=== PATIENT | female | born 1960 | race Caucasian/White ===

== ENCOUNTER 2017-02-06 11:25 | Emergency (ER) | payer MEDICARE, MEDICAID ==
[~2017-02-06] VITALS: Ht 157.5 cm; Wt 74.8 kg
[2017-02-06] MEDS ORDERED: BUSPIRONE HCL15 MG PO (11:44)
[2017-02-06] MEDS ORDERED: QUETIAPINE FUM100 M2 PO (11:45)
[2017-02-06] MEDS ORDERED: LOSARTAN POTAS100 MG PO (11:45)
[2017-02-06] MEDS ORDERED: PAROXETINE HCL40 MG PO (11:45)
[2017-02-06] MEDS ORDERED: METOPROLOL SUCC25 M2 PO (11:46)
[2017-02-06 12:39] LABS: HEMOGLOBIN 10.5 g/dL (12.2-16.2); LYMPH # 1.8 K/mm3 (0.7-4.5); LYMPH % 22.6 % (10-50.0)
--- NOTE | 2017-02-06 13:02 | RADIOLOGY REPORT PS360 ---
CT HEAD W/O CONTRAST HISTORY: Headache/pain/contusion or laceration following injury, prior craniotomy/brain surgery HEAD INJURY POST FALL ORDERING PHYSICIAN: Stan Frost MD PATIENT AGE: 57 years COMPARISON: 02/05/2017 TECHNIQUE: Axial images obtained without contrast. Brain and bone windows reviewed. FINDINGS: There has been a prior right-sided craniotomy with removal of the right parietal bone as well as the major portion of the temporal and frontal bone. Encephalomalacia changes are present from apparent prior right MCA infarction. No obvious intracranial hemorrhage. Periventricular ischemic gliotic changes are present on the left. No midline shift or mass effect is evident. There is some minimal parenchymal calcification in the right frontal lobe Mild mucosal thickening involves the ethmoid sinuses IMPRESSION: 1. No change with no acute finding 2. 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 3. Extensive right-sided craniotomy defect.
--- NOTE | 2017-02-06 13:08 | Emergency Room Report ---
History of Present Illness Time Seen by 1130 Presenting Problem in Triage Pt arrived:Ambulance Stretcher Presenting Problem:PT WAS RECENTLY SEEN IN THE ER PREVIOUS DATE, SENT TO AND SUBSEQUENTLY SENT BACK HOME A DISCHARGE. PT THEN EVIDENTLY HAD FALLEN, THEN WORKERS AT THE "HOME" CALLED EMS. EMS EVALUATION DETERMINED PATIENT TO NOT BE ABLE TO AMBULATED. Onset of symptoms date/time:/ or onset unknown for:MEDICAL HX UNKNOWN Treatment Prior to Arrival: STORAGE SOLUTIONS ARCHITECT Provided by: Sepsis Risk Assessment: Temp: 98.0 B/P: 96/57 MAP: 70 Pulse: 52 Resp: 18 Recent fever? N Clinical Suspician of Infection? N Mental Status: 1 - Regular (Normal Baseline) Sepsis Risk:Low Sepsis Risk Have you (or family members/close friends) recently traveled outside the [place]? N If Yes, where/when: Have you had exposure to infectious disease within the past month? TB? Other? Specify: Source patient, RN notes reviewed, RN/MD Exam Limitations no limitations Comment This is a 57-year-old female patient brought in by EMS from [facility] after tripping, and falling, injuring her left side of the head. Patient has that denies any loss of consciousness. She has a history of RIGHT temporal parietal craniotomy s/p subdural hematoma 3 years ago, while in [facility]. Patient was transferred to our emergency room yesterday after sustaining a fall, as well, and a suspicion for possible stroke. She was subsequently transferred to [facility] stroke team but the discharged later, the same day, after an acute CVA was ruled out. According to the discharge papers from the patient has advised that left-sided neurological deficit is old, related to her RIGHT temporal parietal craniotomy, 3 years ago. The EMS, and well as [facility] staff, believe the patient is unable to walk, which would be a change from her baseline. ALLERGIES Coded Allergies: No Known Allergies (02/05/17) Home Medications Reported Medications Buspirone Hcl 15 MG PO DAILY #90 Quetiapine Fumarate 100 MG PO DAILY #30 Losartan Potassium (Losartan 100MG) 100 MG PO DAILY #30 PAROXETINE HCL (Paroxetine Hcl) 40 MG PO DAILY #30 Metoprolol Succinate 25 MG PO DAILY #30 History Medical History General Hypertension? Yes Hepatitis? 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 N/A Social History Smoking Hx Smoker: Current Every Day Smoker Tobacco: Yes Type Cigarettes Packs/day < 1 Pack Alcohol Alcohol: No Review of Systems All Other Systems Reviewed and Negative Psychiatric/Neurological see HPI, headache Physical Exam Vital Signs Vital Signs Date Time Temp Pulse Resp B/P Pulse O2 O2 Flow FiO2 Ox Delivery Rate 02/06 1348 98.0 56 18 110/57 99 02/06 1309 56 18 110/57 99 02/06 1128 98.0 52 18 96/57 100 General Appearance normal appearance, WD/WN, no apparent distress Eye Exam - bilateral eye normal exam, bilateral eye PERRL, bilateral eye EOMI Respiratory Status Yes: trachea midline, chest symmetrical, non tender chest. No: respiratory distress. Lung Sounds bilateral: normal breath sounds, lungs clear. Cardiovascular normal exam, regular rate/rhythm, no peripheral edema, no gallop, no JVD, no murmur, no rub, normal peripheral pulses Peripheral Pulses Pulses normal Yes Gastrointestinal normal bowel sounds, normal exam, non tender, soft, no organomegaly Extremities non-tender, normal range of motion, normal inspection Neurologic alert, coiler operator II-XII nml as tested, normal exam, oriented x 3 Mental status normal mood/affect Skin intact, normal color, warm/dry, left side head tender to palpation, no erytrema, no soft tissue swelling right side of the head deformed, c/w craniotomy of the right temporo parietal area Medical Decision Making LABS/Meds/Orders Pt receiving controlled substance in ED? No Comment Case discussed with Care Management, who came and evalauted epatient for possible NH placemnet. They suggested the patient ot be seen by Physican Therapy while still here, in the ER. Physical Therapy here in the ER, assessing the patient. PT was able to get the patient out of bed and have her walk short distances, without help. Physical therapy discussrd case with case management and the both agree the patient can be discharged back to the assisted care living and that care management can follow-up with her while returned at [facility]. Due to her gait it was deemed as medically necessary (by Physical Therapy, as well as myself) that she receives a roller walker instead of a cane or o quad cane upon return to [facility]. Results/Orders Laboratory Tests 02/06/17 1220: Creatine Kinase 24 L, CK-MB (CK-2) Rel Index 2.1, CK and CKMB Interp < 0.5, Troponin I < 0.02 02/06/17 1220: Sodium 142, Potassium 3.6, Chloride 107, Carbon Dioxide 25, BUN 14, Creatinine 1.1 H, Estimated Creat Clear 67, Estimated GFR (MDRD) 51 L, Glucose 107 H, Calcium 8.9, Total Bilirubin 0.4, AST 52 H, ALT 48, Alkaline Phosphatase 99, Total Protein 8.2, Albumin 3.3 L, Globulin 4.9 H, Albumin/Globulin Ratio 0.7 L, WBC 7.9, RBC 3.66 L, Hgb 10.5 L, Hct 33.0 L, MCV 90.3, RDW 14.5, Plt Count 272, MPV 7.8, Gran % 69.5, Gran # 5.5, Lymphocytes % 22.6, Monocytes % 5.9, Eosinophils % 1.6, Basophils % 0.5, Lymphocytes # 1.8, Monocytes # 0.5, Eosinophils # 0.1, Basophils # 0.0, PUBS MCHC 31.8, MCH 28.7 Current Medication Orders Sig/Anne-Marie Start time Last Medication Dose Route Stop Time Status Admin Sodium Chloride 10 ML PRN PRN 02/06 1145 DCD IV 02/07 1131 Orders Procedure Date/time Status DIET-NOTHING BY MOUTH 02/06 D Active GCode Evaluation by Rehab, Per 02/06 1222 Active PHYS. THERAPY EVAL REQUEST 02/06 1156 Active PHYS. THERAPY EVAL REQUEST 02/06 1152 Active ELECTROCARDIOGRAM REQUEST 02/06 1132 Active CARDIAC ENZYMES 02/[address] HEAD REQ 02/06 1131 Complete IV SALINE LOCK 02/06 1131 Active CBC WITH AUTO DIFF 02/06 1131 Complete CHEM 12 PROFILE 02/06 1131 Complete 12 LEAD EKG-LEESA (INITIAL) 02/06 UNK Active CM/EKG CM/city council member Rhythm Normal Sinus Rhythm Rate 88 Ectopy No Comments no acute ischemic changes XRAY/CT/US XRAY/CT/US CT head CT interpretation by discussed w/radiologist CT Results abnormal Comment no ICH, see radiologist's report Departure Departure Time of Disposition 1303 Disposition DC Home or Self Care(routine) Clinical Impression Primary Impression: Fall Qualifiers: Encounter type: initial encounter Qualified Code: W19.XXXA - Unspecified fall, initial encounter Secondary Impressions: Head contusion Qualifiers: Encounter type: initial encounter Contusion of head detail: scalp Qualified Code: S00.03XA - Contusion of scalp, initial encounter Condition STABLE Referrals Flo MCDONALD,Willy Mejia (PCP): 2 Days-Call Office if not better Patient Instructions DI for Contusion Additional Instructions Physical therapy has seen and evalauted your while in this ER, and recommended that from now on you ustart using a roller walker (presscription attached). Discharge Counseling Counseled pt/family regarding diagnosis, test results, medications/RX, home care, follow up needs Comment Physical therapy has seen and evalauted your while in this ER, and recommended that from now on you ustart using a roller walker (presscription attached). ED Critical Care Critical Care No at [id number]
--- NOTE | 2017-02-06 13:08 | Emergency Room Report ---
History of Present Illness Time Seen by 1130 Presenting Problem in Triage Pt arrived:Ambulance Stretcher Presenting Problem:PT WAS RECENTLY SEEN IN THE ER PREVIOUS DATE, SENT TO AND SUBSEQUENTLY SENT BACK HOME A DISCHARGE. PT THEN EVIDENTLY HAD FALLEN, THEN WORKERS AT THE "HOME" CALLED EMS. EMS EVALUATION DETERMINED PATIENT TO NOT BE ABLE TO AMBULATED. Onset of symptoms date/time:/ or onset unknown for:MEDICAL HX UNKNOWN Treatment Prior to Arrival: OPERATIONS GENERAL AGENT Provided by: Sepsis Risk Assessment: Temp: 98.0 B/P: 96/57 MAP: 70 Pulse: 52 Resp: 18 Recent fever? N Clinical Suspician of Infection? N Mental Status: 1 - Regular (Normal Baseline) Sepsis Risk:Low Sepsis Risk Have you (or family members/close friends) recently traveled outside the [place]? N If Yes, where/when: Have you had exposure to infectious disease within the past month? TB? Other? Specify: Source patient, RN notes reviewed, RN/MD Exam Limitations no limitations Comment This is a 57-year-old female patient brought in by EMS from [facility] after tripping, and falling, injuring her left side of the head. Patient has that denies any loss of consciousness. She has a history of RIGHT temporal parietal craniotomy s/p subdural hematoma 3 years ago, while in [facility]. Patient was transferred to our emergency room yesterday after sustaining a fall, as well, and a suspicion for possible stroke. She was subsequently transferred to [facility] stroke team but the discharged later, the same day, after an acute CVA was ruled out. According to the discharge papers from the patient has advised that left-sided neurological deficit is old, related to her RIGHT temporal parietal craniotomy, 3 years ago. The EMS, and well as [facility] staff, believe the patient is unable to walk, which would be a change from her baseline. ALLERGIES Coded Allergies: No Known Allergies (02/05/17) Home Medications Reported Medications Buspirone Hcl 15 MG PO DAILY #90 Quetiapine Fumarate 100 MG PO DAILY #30 Losartan Potassium (Losartan 100MG) 100 MG PO DAILY #30 PAROXETINE HCL (Paroxetine Hcl) 40 MG PO DAILY #30 Metoprolol Succinate 25 MG PO DAILY #30 History Medical History General Hypertension? Yes Hepatitis? 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 N/A Social History Smoking Hx Smoker: Current Every Day Smoker Tobacco: Yes Type Cigarettes Packs/day < 1 Pack Alcohol Alcohol: No Review of Systems All Other Systems Reviewed and Negative Psychiatric/Neurological see HPI, headache Physical Exam Vital Signs Vital Signs Date Time Temp Pulse Resp B/P Pulse O2 O2 Flow FiO2 Ox Delivery Rate 02/06 1348 98.0 56 18 110/57 99 02/06 1309 56 18 110/57 99 02/06 1128 98.0 52 18 96/57 100 General Appearance normal appearance, WD/WN, no apparent distress Eye Exam - bilateral eye normal exam, bilateral eye PERRL, bilateral eye EOMI Respiratory Status Yes: trachea midline, chest symmetrical, non tender chest. No: respiratory distress. Lung Sounds bilateral: normal breath sounds, lungs clear. Cardiovascular normal exam, regular rate/rhythm, no peripheral edema, no gallop, no JVD, no murmur, no rub, normal peripheral pulses Peripheral Pulses Pulses normal Yes Gastrointestinal normal bowel sounds, normal exam, non tender, soft, no organomegaly Extremities non-tender, normal range of motion, normal inspection Neurologic alert, paediatric thoracic physician II-XII nml as tested, normal exam, oriented x 3 Mental status normal mood/affect Skin intact, normal color, warm/dry, left side head tender to palpation, no erytrema, no soft tissue swelling right side of the head deformed, c/w craniotomy of the right temporo parietal area Medical Decision Making LABS/Meds/Orders Pt receiving controlled substance in ED? No Comment Case discussed with Care Management, who came and evalauted epatient for possible NH placemnet. They suggested the patient ot be seen by Physican Therapy while still here, in the ER. Physical Therapy here in the ER, assessing the patient. PT was able to get the patient out of bed and have her walk short distances, without help. Physical therapy discussrd case with case management and the both agree the patient can be discharged back to the assisted care living and that care management can follow-up with her while returned at [facility]. Due to her gait it was deemed as medically necessary (by Physical Therapy, as well as myself) that she receives a roller walker instead of a cane or o quad cane upon return to [facility]. Results/Orders Laboratory Tests 02/06/17 1220: Creatine Kinase 24 L, CK-MB (CK-2) Rel Index 2.1, CK and CKMB Interp < 0.5, Troponin I < 0.02 02/06/17 1220: Sodium 142, Potassium 3.6, Chloride 107, Carbon Dioxide 25, BUN 14, Creatinine 1.1 H, Estimated Creat Clear 67, Estimated GFR (MDRD) 51 L, Glucose 107 H, Calcium 8.9, Total Bilirubin 0.4, AST 52 H, ALT 48, Alkaline Phosphatase 99, Total Protein 8.2, Albumin 3.3 L, Globulin 4.9 H, Albumin/Globulin Ratio 0.7 L, WBC 7.9, RBC 3.66 L, Hgb 10.5 L, Hct 33.0 L, MCV 90.3, RDW 14.5, Plt Count 272, MPV 7.8, Gran % 69.5, Gran # 5.5, Lymphocytes % 22.6, Monocytes % 5.9, Eosinophils % 1.6, Basophils % 0.5, Lymphocytes # 1.8, Monocytes # 0.5, Eosinophils # 0.1, Basophils # 0.0, PUBS MCHC 31.8, MCH 28.7 Current Medication Orders Sig/Anne-Marie Start time Last Medication Dose Route Stop Time Status Admin Sodium Chloride 10 ML PRN PRN 02/06 1145 DCD IV 02/07 1131 Orders Procedure Date/time Status DIET-NOTHING BY MOUTH 02/06 D Active GCode Evaluation by Rehab, Per 02/06 1222 Active PHYS. THERAPY EVAL REQUEST 02/06 1156 Active PHYS. THERAPY EVAL REQUEST 02/06 1152 Active ELECTROCARDIOGRAM REQUEST 02/06 1132 Active CARDIAC ENZYMES 02/[address] HEAD REQ 02/06 1131 Complete IV SALINE LOCK 02/06 1131 Active CBC WITH AUTO DIFF 02/06 1131 Complete CHEM 12 PROFILE 02/06 1131 Complete 12 LEAD EKG-LEESA (INITIAL) 02/06 UNK Active CM/EKG CM/retort firer Rhythm Normal Sinus Rhythm Rate 88 Ectopy No Comments no acute ischemic changes XRAY/CT/US XRAY/CT/US CT head CT interpretation by discussed w/radiologist CT Results abnormal Comment no ICH, see radiologist's report Departure Departure Time of Disposition 1303 Disposition DC Home or Self Care(routine) Clinical Impression Primary Impression: Fall Qualifiers: Encounter type: initial encounter Qualified Code: W19.XXXA - Unspecified fall, initial encounter Secondary Impressions: Head contusion Qualifiers: Encounter type: initial encounter Contusion of head detail: scalp Qualified Code: S00.03XA - Contusion of scalp, initial encounter Condition STABLE Referrals Flo MCDONALD,Willy Mejia (PCP): 2 Days-Call Office if not better Patient Instructions DI for Contusion Additional Instructions Physical therapy has seen and evalauted your while in this ER, and recommended that from now on you ustart using a roller walker (presscription attached). Discharge Counseling Counseled pt/family regarding diagnosis, test results, medications/RX, home care, follow up needs Comment Physical therapy has seen and evalauted your while in this ER, and recommended that from now on you ustart using a roller walker (presscription attached). ED Critical Care Critical Care No at [id number]
[2017-02-06 13:48] VITALS: BP 110/57
== END 2017-02-06 13:49 | disposition home or self-care (01) ==
LOC: ER 11:25
PROVIDERS: Emergency Medicine
DX: S00.03XA Contusion of scalp, initial encounter (principal); W19.XXXA Unspecified fall, initial encounter; I10 Essential (primary) hypertension; Z79.899 Other long term (current) drug therapy; Z72.0 Tobacco use

== ENCOUNTER 2017-04-19 10:15 | Emergency (ER) | payer MEDICARE, MEDICAID ==
[~2017-04-19] VITALS: Ht 157.5 cm; Wt 68.0 kg
[~2017-04-19 10:15] MED LIST: BUSPIRONE HCL15 MG PO; LOSARTAN POTAS100 MG PO; METOPROLOL SUCC25 M2 PO; PAROXETINE HCL40 MG PO; QUETIAPINE FUM100 M2 PO
--- OUTSIDE RECORDS SUMMARY | 2017-04-19 10:48 | External Medical Summary Rpt | Continuity of Care Document ---
Author Author Organization Address Unknown Phone Unavailable Care Team Providers Care Behavioral Health Care Manager Name Role Phone , Unavailable Unavailable EMS Current Medications Section EMS Allergies and Adverse Reactions EMS Past Medical History Medications Administered Section EMS Procedures Performed EMS Vital Signs EMS Patient Care Report Narrative Called to [facility] for a transfer. U/A pt is a 57 y/o female that was found sitting in bed 2 of the ED with holloway catheter in place and IV in the left hand. Pt was brought into the ED by EC1. Pt was reported to have fallen at approximately 12 noon at [place]. When this happened, the patient was immediately slurring her words and displayed stroke like symptoms. Pt initial NIH scale at the ED was 5. Pt is being sent to for neurological care not available locally. Pt was moved to stretcher by crew and secured. Pt then moved into ambulance and secured. Pt was placed on onion topper. Exam as listed. Pt was transported to non urgently due to being outside of stroke window. No changes in route to , care turned over to staff.
--- OUTSIDE RECORDS SUMMARY | 2017-04-19 10:48 | External Medical Summary Rpt | Continuity of Care Document ---
Author Author Organization Address Unknown Phone Unavailable Care Team Providers Care Hammerer Tab Name Role Phone , Unavailable Unavailable EMS Current Medications Section EMS Allergies and Adverse Reactions EMS Past Medical History Medications Administered Section EMS Procedures Performed EMS Vital Signs EMS Patient Care Report Narrative H911 IMMEDIATE RESPONSE TO PARK SIDE FOR A FEMALE THAT HAS FALLEN AND IS NOT ACTING RIGHT. UPON ARRIVAL TO PT SHE WAS SITTING UP ON A BENCH OUTSIDE WITH A STAFF MEMEBR ON HER LT SIDE HOLDING HER UP. PT WAS 4-5-6, SKIN W/D, LION, L/S C=. PT HAD LT SIDED FACIAL DROOP, SLURRED SPEECH LT ARM WEAKNESS. PLACED PT ONTO COT AND THEN INTO THE AMBULANCE. OBTAINED V/S, VAN OWNER OPERATOR - NSR, BGS - 128, 20G LOCK LT HAND, BLOOD DRAW, CALLED STROKE ALERT TO [facility] ER AND MONITORED PT EN ROUTE TO [facility] ER. TRANSPORT WITH OUT INCIDENT. NO CHANGE IN STATUS. REPORT AND CARE GIVEN TO SALES PROGRAM MANAGER. Padmini ROGERS CCP.
--- OUTSIDE RECORDS SUMMARY | 2017-04-19 10:48 | External Medical Summary Rpt | Continuity of Care Document ---
Author Author Organization Address Unknown Phone Unavailable Care Team Providers Care Director Of Nurses Registry Name Role Phone , Unavailable Unavailable EMS Current Medications Section EMS Allergies and Adverse Reactions EMS Past Medical History Medications Administered Section EMS Procedures Performed EMS Vital Signs EMS Patient Care Report Narrative Called to [facility] for a transfer. U/A pt is a 57 y/o female that was found sitting in bed 2 of the ED with holloway catheter in place and IV in the left hand. Pt was brought into the ED by EC1. Pt was reported to have fallen at approximately 12 noon at [place]. When this happened, the patient was immediately slurring her words and displayed stroke like symptoms. Pt initial NIH scale at the ED was 5. Pt is being sent to for neurological care not available locally. Pt was moved to stretcher by crew and secured. Pt then moved into ambulance and secured. Pt was placed on cardiac cath lab technologist. Exam as listed. Pt was transported to non urgently due to being outside of stroke window. No changes in route to , care turned over to staff.
--- OUTSIDE RECORDS SUMMARY | 2017-04-19 10:48 | External Medical Summary Rpt | Continuity of Care Document ---
Author Author Organization Address Unknown Phone Unavailable Care Team Providers Care Fuel Cell Designer Name Role Phone , Unavailable Unavailable EMS Current Medications Section EMS Allergies and Adverse Reactions EMS Past Medical History Medications Administered Section EMS Procedures Performed EMS Vital Signs EMS Patient Care Report Narrative Crew 231 dispatched to for transport of 57 year old female pt going to [facility] in [facility]. Crew received report from pt's nurse on scene. Pt required transport by ambulance due to severe weakness/could not sit upright, Hx of falls. Crew found pt supine in hospital bed on room air, alert and oriented. Crew moved pt from hospital bed to stretcher by draw sheet then secured them with all belts and rails. Crew loaded pt into ambulance for transport. Pt vitals were monitored and noted, pt remained stable. Crew unloaded pt at destination then took them into facility. Crew moved pt from stretcher to bed by draw sheet. A report was given to receiving nurse then pt care was turned over to them.
--- OUTSIDE RECORDS SUMMARY | 2017-04-19 10:48 | External Medical Summary Rpt | Continuity of Care Document ---
Author Author Organization Address Unknown Phone Unavailable Care Team Providers Care Call Center Dispatcher Name Role Phone , Unavailable Unavailable EMS [...] AND THEN INTO THE AMBULANCE. OBTAINED V/S, CLOCKSMITH - NSR, BGS - 128, 20G LOCK LT HAND, BLOOD DRAW, CALLED STROKE ALERT TO [facility] ER AND MONITORED PT EN ROUTE TO [facility] ER. TRANSPORT WITH OUT INCIDENT. NO CHANGE IN STATUS. REPORT AND CARE GIVEN TO CUTTER HELPER. Padmini ROGERS CCP.
--- OUTSIDE RECORDS SUMMARY | 2017-04-19 10:48 | External Medical Summary Rpt | Continuity of Care Document ---
Author Author Organization Address Unknown Phone Unavailable Care Team Providers Care Meat Stuffer Name Role Phone , Unavailable Unavailable EMS Current Medications Section EMS Allergies and Adverse Reactions EMS Past Medical History Medications Administered Section EMS Procedures Performed EMS Vital Signs EMS Patient Care Report Narrative Crew 231 dispatched to for transport of 57 year old female pt going to [facility] in [facility]. Crew received report from pt's nurse on [...]
--- OUTSIDE RECORDS SUMMARY | 2017-04-19 10:49 | External Medical Summary Rpt | CCD ---
Author Author Conduent Organization Conduent Address Unknown Phone Unavailable Purpose Continuity of Care Document - through 2016
--- OUTSIDE RECORDS SUMMARY | 2017-04-19 10:49 | External Medical Summary Rpt | CCD ---
Author Author , CASSANDRA Organization CASSANDRA Address Unknown Phone [email or web address] Purpose Continuity of Care Document - 02-05-2017 through 2016 Problems Code Diagnosis DOS Provider Status F17.200 Nicotine 02-13-2017 dependence, unspecified , uncomplicat ed G81.94 Hemiplegia, 02-13-2017 unspecified affecting left nondominant side G93.89 Other 02-13-2017 specified disorders of brain I10 Essential 02-13-2017 (primary) hypertensio n R47.1 Dysarthria 02-13-2017 and anarthria R53.1 Weakness 02-13-2017 R91.8 Other 02-13-2017 nonspecific abnormal finding of lung field W19.XXXA Unspecified 02-13-2017 fall, initial encounter Z72.0 Tobacco use 02-13-2017 Z87.820 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 C34.12 Malignant neoplasm of upper lobe, 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 of unspecified site F31.31 Bipolar disorder, current episode depressed, mild F32.89 Other specified depressive episodes F41.9 Anxiety disorder, unspecified 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 G89.29 Other chronic pain I63.9 CEREBRAL INFARCTION, UNSPECIFIED J95.811 Postprocedu ral pneumothora x J96.01 Acute respiratory failure with hypoxia M25.532 Pain in left wrist M54.5 Low back pain R09.1 Pleurisy R11.0 Nausea R25.1 Tremor, unspecified R60.9 Edema, unspecified S00.93XA CONTUSION OF UNSPECIFIED PART OF HEAD, INITIAL ENCOUNTER S32.030A Wedge compression fracture of third lumbar vertebra, initial encounter for closed fracture S49.92XA Unspecified injury of left shoulder and upper arm, initial encounter S52.502A Unspecified fracture of the lower end of left radius, initial encounter for closed fracture S62.102B Fracture of unspecified carpal bone, left wrist, initial encounter for open fracture S93.402A Sprain of unspecified ligament of left ankle, initial encounter Z01.812 Encounter for preprocedur al laboratory examination Z01.818 Encounter for other preprocedur al examination Z76.5 Malingerer (conscious simulation) Z79.899 Other mcfp (current) drug therapy
--- OUTSIDE RECORDS SUMMARY | 2017-04-19 10:49 | External Medical Summary Rpt | CCD ---
Author Author , CASSANDRA Organization CASSANDRA Address Unknown Phone [email or web address] Purpose Continuity of Care Document - 02-05-2017 [...] examination Z76.5 Malingerer (conscious simulation) Z79.899 Other long-term (current) drug therapy
--- OUTSIDE RECORDS SUMMARY | 2017-04-19 10:49 | External Medical Summary Rpt ---
Author Author ALBINOSILVANA [employer], CASSANDRA [employer] Organization [employer] Address Unknown Phone Unavailable Results Comprehensive metabolic 2000 panel in Serum or Plasma Observa Value Referen Units Interpr Notes Date tion ce etation Range Albumin/G 1.1 - 1.8 No Low No Sep 6 lobulin informati informati 2017 [Mass on in on in 12:20 PM ratio] in source source Serum or data data Plasma Albumin 3.4 - 5.0 gm/dL Low No Sep 6 [Mass/vol informati 2017 ume] in on in 12:20 PM Serum or source Plasma data Alkaline 46 - 116 U/L Normal No Sep 6 phosphata informati 2017 se on in 12:20 PM [Enzymati source c data activity/ volume] in Serum or Plasma Bilirubin 0.2 - 1.0 mg/dL Normal No Sep 6 .total informati 2017 [Mass/vol on in 12:20 PM ume] in source Serum or data Plasma Urea 7 - 18 mg/dL Normal No Sep 6 nitrogen informati 2017 [Mass/vol on in 12:20 PM ume] in source Serum or data Plasma Calcium 8.5 - mg/dL Normal No Sep 6 [Mass/vol 10.1 informati 2017 ume] in on in 12:20 PM Serum or source Plasma data Chloride 98 - 107 mmoL/L Normal No Sep 6 [Moles/vo informati 2017 lume] in on in 12:20 PM Serum or source Plasma data Carbon 21.0 - mmoL/L Normal No Sep 6 dioxide, 32.0 informati 2017 total on in 12:20 PM [Moles/vo source lume] in data Serum or Plasma Creatinin 0.55 - mg/dL High No Sep 6 e 1.02 informati 2017 [Mass/vol on in 12:20 PM ume] in source Serum or data Plasma Creatinin 50 - 200 ML/MIN Normal No Sep 6 e renal informati 2017 clearance on in 12:20 PM source predicted data by Cockcroft -Gault formula Estimated 59- ML/MIN Low REFERENCE Sep 6 RANGE: 2017 glomerula >60 12:20 PM r ML/MIN/1. filtratio 73 SQUARE n rate METERSIf (GF this patient is -A merican, then multiply theresult by 1.210. Globulin 1.3 - 3.2 gm/dL High No Sep 6 [Mass/vol informati 2017 ume] in on in 12:20 PM Serum source data Glucose 74 - 106 mg/dL High No Sep 6 [Mass/vol informati 2017 ume] in on in 12:20 PM Serum or source Plasma data Potassium 3.5 - 5.1 mmoL/L Normal No Sep 6 inform 2017 [Moles/vo on in 12:20 PM lume] in source Serum or data Plasma Sodium 136 - 145 mmoL/L Normal No Sep 6 [Moles/vo informati 2017 lume] in on in 12:20 PM Serum or source Plasma data Aspartate 15 - 37 U/L High No Sep 6 inform 2017 aminotran on in 12:20 PM sferase source [Enzymati data c activity/ volume] in Serum or Plasma Alanine 12 - 78 U/L Normal No Sep 6 aminotran inform 2017 sferase on in 12:20 PM [Enzymati source c data activity/ volume] in Serum or Plasma Protein 6.4 - 8.2 gm/dL Normal No Sep 6 [Mass/vol informati 2017 ume] in on in 12:20 PM Serum or source Plasma data CBC W Auto Differential panel in Blood Observa Value Referen Units Interpr Notes Date tion ce etation Range Basophils 0 - 0.2 K/MM3 Normal No Sep 6 2016 [#/volume on in 12:20 PM ] in source Blood by data Automated count Basophils 0.1 - 2.0 % Normal No Sep 6 /100 inform 2017 leukocyte on in 12:20 PM s in source Blood by data Automated count Eosinophi 0.0 - 0.4 K/mm3 Normal No Sep 6 ls informati 2016 [#/volume on in 12:20 PM ] in source Blood by data Automated count Eosinophi 0.1 - % Normal No Sep 6 ls/100 12.0 informati 2017 leukocyte on in 12:20 PM s in source Blood by data Automated count Granulocy 1.8 - 7.8 K/mm3 Normal No Sep 6 theresa 2016 [#/volume on in 12:20 PM ] in source Blood by data Automated count Granulocy 37.0 - % Normal No Sep 6 theresa/100 80.0 informati 2016 leukocyte on in 12:20 PM s in source Blood by data Automated count Hematocri 37.0 - % Low No Sep 6 t [Volume 47.0 informati 2017 on in 12:20 PM Fraction] source of Blood data Hemoglobi 12.2 - g/dL Low No Sep 6 n 16.2 informati 2017 [Mass/vol on in 12:20 PM ume] in source Blood data Lymphocyt 0.7 - 4.5 K/mm3 Normal No Sep 6 es inform 2017 [#/volume on in 12:20 PM ] in source Unspecifi data ed specimen by Automated count Lymphocyt 10 - 50.0 % Normal No Sep 6 es inform 2017 [#/volume on in 12:20 PM ] in source Unspecifi data ed specimen by Automated count Erythrocy 27 - 31.2 pg Normal No Sep 6 te mean inform 2017 corpuscul on in 12:20 PM ar source hemoglobi data n [Entitic mass] Erythrocy 31.8 - g/dl Normal No Sep 6 te mean 35.4 informati 2017 corpuscul on in 12:20 PM ar source hemoglobi data n concentra tion [Mass/vol ume] by Automated count Erythrocy 82.2 - fl Normal No Sep 6 te mean 97.8 informati 2017 corpuscul on in 12:20 PM ar volume source [Entitic data volume] by Automated count Monocytes 0.1 - 1.0 K/mm3 Normal No Sep 6 inform 2017 [#/volume on in 12:20 PM ] in source Blood by data Automated count Monocytes 1.7 - 9.3 % Normal No Sep 6 /100 informati 2017 leukocyte on in 12:20 PM s in source Blood by data Automated count Platelet 7.4 - fl Normal No Sep 6 mean 10.4 informati 2017 volume on in 12:20 PM [Entitic source volume] data in Blood by Automated count Platelets 142 - 424 K/mm3 Normal No Sep 6 inform2016 [#/volume on in 12:20 PM ] in source Blood data Erythrocy 4.2 - 5.4 M/mm3 Low No Sep 6 theresa informati 2016 [#/volume on in 12:20 PM ] in source Amniotic data fluid Erythrocy 11.5 - % Normal No Sep 6 te 17.5 informati 2016 distribut on in 12:20 PM ion width source [Entitic data volume] by Automated count Leukocyte 4.8 - K/MM3 Normal No Sep 6 s 10.8 2016 [#/volume on in 12:20 PM ] in source Blood data CBC W Auto Differential panel in Blood Observa Value Referen Units Interpr Notes Date tion ce etation Range Basophils 0 - 0.2 K/MM3 Normal No Sep 5 2016 [#/volume on in 11:45 AM ] in source Blood by data Automated count Basophils 0.1 - 2.0 % Normal No Sep 5 /100 inform2016 leukocyte on in 11:45 AM s in source Blood by data Automated count Eosinophi 0.0 - 0.4 K/mm3 Normal No Sep 5 ls 2016 [#/volume on in 11:45 AM ] in source Blood by data Automated count Eosinophi 0.1 - % Normal No Sep 5 ls/100 12.0 2016 leukocyte on in 11:45 AM s in source Blood by data Automated count Granulocy 1.8 - 7.8 K/mm3 Normal No Sep 5 theresa 2016 [#/volume on in 11:45 AM ] in source Blood by data Automated count Granulocy 37.0 - % Normal No Sep 5 theresa/100 80.0 2016 leukocyte on in 11:45 AM s in source Blood by data Automated count Hematocri 37.0 - % Low No Sep 5 t [Volume 47.0 inform2016 on in 11:45 AM Fraction] source of Blood data Hemoglobi 12.2 - g/dL Low No Sep 5 n 16.2 2016 [Mass/vol on in 11:45 AM ume] in source Blood data Lymphocyt 0.7 - 4.5 K/mm3 Normal No Sep 5 es 2016 [#/volume on in 11:45 AM ] in source Unspecifi data ed specimen by Automated count Lymphocyt 10 - 50.0 % Normal No Sep 5 es 2016 [#/volume on in 11:45 AM ] in source Unspecifi data ed specimen by Automated count Erythrocy 27 - 31.2 pg Normal No Sep 5 te mean 2016 corpuscul on in 11:45 AM ar source hemoglobi data n [Entitic mass] Erythrocy 31.8 - g/dl Normal No Sep 5 te mean 35.4 inform2016 corpuscul on in 11:45 AM ar source hemoglobi data n concentra tion [Mass/vol ume] by Automated count Erythrocy 82.2 - fl Normal No Sep 5 te mean 97.8 2016 corpuscul on in 11:45 AM ar volume source [Entitic data volume] by Automated count Monocytes 0.1 - 1.0 K/mm3 Normal No Sep 5 2016 [#/volume on in 11:45 AM ] in source Blood by data Automated count Monocytes 1.7 - 9.3 % Normal No Sep 5 /100 2016 leukocyte on in 11:45 AM s in source Blood by data Automated count Platelets 142 - 424 K/mm3 Normal No Sep 5 2016 [#/volume on in 11:45 AM ] in source Blood data Erythrocy 4.2 - 5.4 M/mm3 Low No Sep 5 theresa 2016 [#/volume on in 11:45 AM ] in source Amniotic data fluid Erythrocy 11.5 - % Normal No Sep 5 te 17.5 2016 distribut on in 11:45 AM ion width source [Entitic data volume] by Automated count Leukocyte 4.8 - K/MM3 Normal No Sep 5 s 10.8 2016 [#/volume on in 11:45 AM ] in source Blood data INR in Blood by Coagulation assay Observa Value Referen Units Interpr Notes Date tion ce etation Range IS PATIENT ON ANTICOAGULANTS? N PTT RESULTS MUST BE CALLED IF PT ON HEPARIN!!! Y INR in 0.9 - 1.1 No No INDICATIO Sep 5 Blood by informati inform N 2016 Coagulati on in on in 11:45 AM on assay source source INR data data RANGETHER APY FOR DVT, PE, ATRIAL FIB; 2.0 - 3.0PROPHY LAXIS FOR VTETHERAP Y FOR MECHANICA L HEART 2.5 - 3.5VALVE; PREVENTIO N OF SYSTEMICE MBOLISM SECONDARY TO AMI Prothromb 9.4 - SECONDS Normal No Sep 5 in time 11.8 2016 (PT) in on in 11:45 AM Platelet source poor data plasma by Coagulati on assay Activated partial thrombplastin time (aPTT) in Platelet poor plasma by Coagulation assay Observa Value Referen Units Interpr Notes Date tion ce etation Range IS PATIENT ON ANTICOAGULANTS? N PTT RESULTS MUST BE CALLED IF PT ON HEPARIN!!! Y Activated 23.6 - SECONDS Low No Sep 5 partial 34.0 informati 2017 thrombpla on in 11:45 AM stin time source (aPTT) data in Platelet poor plasma by Coagulati on assay
--- OUTSIDE RECORDS SUMMARY | 2017-04-19 10:49 | External Medical Summary Rpt | CCD ---
Demographics Home Phone Preferred Language Monegasque Marital Status Unknown Mosque Affiliation Unknown Race Unknown Ethnic Group Unknown Author Author , CASSANDRA TRUJILLO Address Unknown Phone [email or web address] Immunization Name Date Rout CVX Reac Dose Comm Prov Is Faci e tion ent ider Refu lity Give sed n Infl - 88 999 Hist 1005 No 1005 uenz 7-20 oric 00 00 a, 17 al UF Info rmat ion - Sour ce Unsp ecif ied
--- OUTSIDE RECORDS SUMMARY | 2017-04-19 10:49 | External Medical Summary Rpt ---
Author Author ALBINOSILVANA [id number], CASSANDRA [id number] Organization [employer] Address Unknown Phone Unavailable [...]
--- OUTSIDE RECORDS SUMMARY | 2017-04-19 10:49 | External Medical Summary Rpt | CCD ---
Demographics Home Phone Preferred Language Taiwanese Marital Status Unknown Rastafari Affiliation Unknown Race Unknown Ethnic Group Unknown Author Author , CASSANDRA TRUJILLO Address Unknown Phone [email or web address] Immunization Name Date Rout CVX Reac Dose Comm Prov Is Faci e tion ent ider Refu lity Give sed n Infl - 88 999 Hist 1005 No 1005 uenz 7-20 oric 00 00 a, 17 al UF Info rmat ion - Sour ce Unsp ecif ied
[2017-04-19] MEDS ORDERED: NAPROXEN SODIU500 MG PO (11:01)
[2017-04-19] MEDS ORDERED: AMOXICILLIN500 M2 PO (11:01)
--- NOTE | 2017-04-19 11:01 | Emergency Room Report ---
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 N Clinical Suspician of Infection? N Mental Status: 1 - Regular (Normal Baseline) Sepsis Risk:Possible Sepsis Risk Have you (or family members/close friends) recently traveled outside the [place]? N If Yes, where/when: Have you had exposure to infectious disease within the past month? N TB? Other? Specify: Pt is EDENTULOUS and c/o right gum pain and cheeck swelling; able to eat soft food and drink; no fever or vomiting. ALLERGIES Coded Allergies: No Known Allergies (02/05/17) Home Medications Reported Medications Buspirone Hcl 15 MG PO DAILY #90 Quetiapine Fumarate 100 MG PO DAILY #30 Losartan Potassium (Losartan 100MG) 100 MG PO DAILY #30 PAROXETINE HCL (Paroxetine Hcl) 40 MG PO DAILY #30 Metoprolol Succinate 25 MG PO DAILY #30 History Medical History General CAD? No Angina: No SD: No Hypertension? Yes Hepatitis? Yes More? 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 Physical Exam Vital Signs Vital Signs Date Time Temp Pulse Resp B/P Pulse O2 O2 Flow FiO2 Ox Delivery Rate 04/19 1016 98.8 95 20 159/103 97 General Appearance normal appearance, WD/WN, no apparent distress Eye Exam - bilateral eye normal exam, bilateral eye PERRL, bilateral eye EOMI Ear, Nose, Throat gingival tenderness, upper right; edentulous. No jaw pain; no drooling; OP wet, no discharge. Right cheek slightly swollen. No redness or streaks. Neck normal inspection, non-tender, supple, full range of motion Respiratory Status No: respiratory distress. 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 No Results/Orders Orders Procedure Date/time Status OP COURTSEY MEAL 04/19 1059 Active Departure Departure Time of Disposition 1059 Disposition DC Home or Self Care(routine) Clinical Impression Primary Impression: Gingivitis Condition STABLE Referrals Flo MCDONALD,Willy Mejia (Family) Patient Instructions DI for Gingivitis Discharge Counseling Counseled pt/family regarding diagnosis, medications/RX, home care, follow up needs Prescriptions Current Visit Scripts NAPROXEN (NAPROXEN 500MG TAB) 500 MG PO BIDP PRN pain #20 TAB Amoxicillin (Amoxicillin 500MG Tab) 500 MG PO TID #30 TAB ED Critical Care Critical Care No at 1101
--- NOTE | 2017-04-19 11:01 | Emergency Room Report ---
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 N Clinical Suspician of Infection? N Mental Status: 1 - Regular (Normal Baseline) Sepsis Risk:Possible Sepsis Risk Have you (or family members/close friends) recently traveled outside the [place]? N If Yes, where/when: Have you had exposure to infectious disease within the past month? N TB? Other? Specify: Pt is EDENTULOUS and c/o right gum pain and cheeck swelling; able to eat soft food and drink; no fever or vomiting. ALLERGIES Coded Allergies: No Known Allergies (02/05/17) Home Medications Reported Medications Buspirone Hcl 15 MG PO DAILY #90 Quetiapine Fumarate 100 MG PO DAILY #30 Losartan Potassium (Losartan 100MG) 100 MG PO DAILY #30 PAROXETINE HCL (Paroxetine Hcl) 40 MG PO DAILY #30 Metoprolol Succinate 25 MG PO DAILY #30 History Medical History General CAD? No Angina: No IN: No Hypertension? Yes Hepatitis? Yes More? 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 Physical Exam Vital Signs Vital Signs Date Time Temp Pulse Resp B/P Pulse O2 O2 Flow FiO2 Ox Delivery Rate 04/19 1016 98.8 95 20 159/103 97 General Appearance normal appearance, WD/WN, no apparent distress Eye Exam - bilateral eye normal exam, bilateral eye PERRL, bilateral eye EOMI Ear, Nose, Throat gingival tenderness, upper right; edentulous. No jaw pain; no drooling; OP wet, no discharge. Right cheek slightly swollen. No redness or streaks. Neck normal inspection, non-tender, supple, full range of motion Respiratory Status No: respiratory distress. 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 No Results/Orders Orders Procedure Date/time Status OP COURTSEY MEAL 04/19 1059 Active Departure Departure Time of Disposition 1059 Disposition DC Home or Self Care(routine) Clinical Impression Primary Impression: Gingivitis Condition STABLE Referrals Flo MCDONALD,Willy Mejia (Family) Patient Instructions DI for Gingivitis Discharge Counseling Counseled pt/family regarding diagnosis, medications/RX, home care, follow up needs Prescriptions Current Visit Scripts NAPROXEN (NAPROXEN 500MG TAB) 500 MG PO BIDP PRN pain #20 TAB Amoxicillin (Amoxicillin 500MG Tab) 500 MG PO TID #30 TAB ED Critical Care Critical Care No at 1101
[2017-04-19 11:38] VITALS: BP 159/103
== END 2017-04-19 11:38 | disposition home or self-care (01) ==
LOC: ER 10:15
DX: K05.00 Acute gingivitis, plaque induced (principal); Z72.0 Tobacco use; I10 Essential (primary) hypertension